=== PATIENT | male | born 1960 | race African-American/Black ===

== ENCOUNTER 2017-03-11 08:19 | Day surgery (SDC) | payer OTHER ==
[2017-02-27 11:43] VITALS: BMI 24.2
[2017-03-11] MEDS ORDERED: DEXAMETHASONE SOD PHOSPHATE 4 MG/1 ML VIAL NR ONE (11:20)
--- NOTE | 2017-03-11 11:20 | HP ---
History & Physical Update - Physical Currently as noted:: Refer to primary care physician history and physical.
[2017-03-11] MEDS ORDERED: BUPIVACAINE HCL/PF 0.25% (2.5MG/ML) 10 ML VIAL ONE (11:21)
[2017-03-11] MEDS ORDERED: LIDOCAINE HCL 1%, 10 MG/ML (20ML VIAL) ONE (11:21)
[2017-03-11] MEDS ORDERED: ONDANSETRON 4 MG/2 ML VIAL IVPUSH PRN (11:33)
[2017-03-11] MEDS ORDERED: oxyCODONE HCL 5 MG TABLET PO PRN (11:33)
[2017-03-11] MEDS ORDERED: PROMETHAZINE HCL 25 MG/1 ML VIAL IVPUSH PRN (11:33)
[2017-03-11] MEDS ORDERED: MIDAZOLAM HCL 2 MG/2 ML SINGLE DOSE VIAL ONE ×2 (11:37→11:41)
[2017-03-11] MEDS ORDERED: ceFAZolin SODIUM 1 GM VIAL ONE (11:40)
[2017-03-11] MEDS ORDERED: ceFAZolin SODIUM 1 GM VIAL IVPB ONE (11:40)
[2017-03-11] MEDS ORDERED: LACTATED RINGERS SOLUTION 1,000 ML IV SCH (11:45)
[2017-03-11] MEDS ORDERED: BUPIVACAINE HCL/PF (5 MG/ML) 30 ML VIAL IJ ONE (11:45)
[2017-03-11] MEDS ORDERED: DEXAMETHASONE SOD PHOSPHATE 4 MG/1 ML VIAL ONE (12:09)
--- NOTE | 2017-03-11 12:33 | OP ---
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 Surgeon: Samina Caldwell Anesthesiologist/PHLEBOTOMY TECH: Erica Bates MD Anesthesia: MAC Specimens Removed: bone right 5th toe Estimated Blood Loss (mls): 1 Operative Report Dictated: Yes
[2017-03-11 14:51] VITALS: TEMP 98.1
[2017-03-11 16:58] VITALS: BP 124/53; PULSE 62
--- NOTE | 2017-03-13 14:21 | PATH ---
Surgical Pathology Report Patient Name: KATERINA KELLEY [facility]. Rec. #: [id number] /Age/Gender: 1960 (Age: 57) / M Account: [id number] Location: [facility] SURGICAL Taken: 03/11/2017 Received: 03/11/2017 Reported: 03/13/2017 Physicians: Samina Caldwell DPM Specimen(s) Received BONE RIGHT FIFTH TOE Clinical History Exostosis hammertoe right fifth toe Final Diagnosis BONE, RIGHT FIFTH TOE, EXCISION: BONE WITH REACTIVE CHANGES, WITH ATTACHED CARTILAGE AND SYNOVIUM. Electronically Signed Yousuf Hanson M.D. Gross Description Received in formalin labeled "bone right fifth toe," is a 0.6 cm greatest dimension de la torre bone fragment. The specimen is submitted in toto in one cassette, following decalcification. 03/12/201703/12/2017
== END 2017-03-11 15:59 | disposition home or self-care (01) ==
LOC: JASU-SURG 08:19
PROVIDERS: ATTEND Podiatrist Foot Surgery
PROC: 0SGP0ZZ (ICD-10-PCS; principal; 2017-03-11 11:00)
DX: M20.41 Other hammer toe(s) (acquired), right foot (principal)
CPT/HCPCS: 73630-TC-RT; 88304-TC; 88311-TC; 94760